=== PATIENT | female | born 1970 | race Caucasian/White ===

== ENCOUNTER 2016-08-17 15:46 | Emergency (ER) | payer MEDICAID ==
[~2016-08-17] VITALS: Wt 72.7 kg
[2016-08-17] MEDS ORDERED: ONDANSETRON 4 MG INJ IV STA (16:19)
[2016-08-17] MEDS ORDERED: SOD CHLORIDE 0.9% 1,000 ML IV STA (16:19)
[2016-08-17] MEDS ORDERED: morphine 4 MG/ML VIAL IV STA (16:19)
[2016-08-17 16:51] LABS: ADD SCAN DIFF NO
[2016-08-17 16:53] LABS: BASOPHIL # 0.1 10^3/ul (0.0-0.1); BASOPHILS % 0.8 % (0.0-2.0); EOSINOPHILS # 0.1 10^3/ul (0.0-0.5); EOSINOPHILS % 1.1 % (0.0-7.0); HEMATOCRIT 43.1 % (37.0-47.0); HEMOGLOBIN 14.5 g/dl (12.0-16.0); LYMPHOCYTES # 1.8 10^3/ul (0.8-2.9); MEAN CORPUSCULAR HEMOGLOBIN 31.8 pg (29.0-33.0); MEAN CORPUSCULAR HGB CONC 33.6 g/dl (32.0-37.0); MEAN CORPUSCULAR VOLUME 94.5 fl (82.0-101.0); MEAN PLATELET VOLUME 9.7 fl (7.4-10.4); MONOCYTE # 0.3 10^3/ul (0.3-0.9); MONOCYTES % 5.2 % (0.0-11.0); NEUTROPHIL # 4.1 10^3/ul (1.6-7.5); NEUTROPHILS % 64.7 % (39.0-77.0); PLATELET COUNT 278 10^3/UL (140-415); RED BLOOD COUNT 4.56 10^6/ul (4.20-5.40); WHITE BLOOD COUNT 6.4 10^3/ul (4.8-10.8)
[2016-08-17 16:54] LABS: ADD UMIC YES; URINE BILIRUBIN (Dip) NEGATIVE (NEGATIVE); URINE BLOOD (Dip) NEGATIVE (NEGATIVE); URINE COLOR LT. YELLOW (YELLOW); URINE GLUCOSE (Dip) NEGATIVE (NEGATIVE); URINE KETONES (Dip) NEGATIVE (NEGATIVE); URINE LEUKOCYTE ESTERASE (Dip) TRACE (NEGATIVE); URINE NITRITE (Dip) NEGATIVE (NEGATIVE); URINE TOTAL PROTEIN (Dip) NEGATIVE (NEGATIVE); URINE UROBILINOGEN (Dip) 0.2 E.U./dL (0.1-1.0)
[2016-08-17 17:01] LABS: SQUAMOUS EPITHELIAL CELL,UR FEW; URINE RBCS NONE SEEN /HPF (0)
--- NOTE | 2016-08-17 17:07 | RADRPT ---
PROCEDURE: US Abdomen (right upper quadrant). CLINICAL INDICATION: Right upper quadrant abdomen pain. TECHNIQUE: Multiple real-time longitudinal and transverse images of the right upper quadrant of th e abdomen were acquired utilizing a curved array transducer. Images were reviewed on a high-resoluti on PACS workstation. COMPARISON: CT scan of the abdomen and pelvis dated 11/25/2013. FINDINGS: The liver is normal in size and echogenicity. There is no focal hepatic lesion. The gallbladder is not visualized but was present on the prior CT scan from 11/25/2013. The bile ducts are normal with the common bile duct measuring 5.0 mm in diameter. The visualized portions of the pancreas are unremarkable with obscuration of the tail of the pancrea s. No free fluid is present. The right kidney measures 10.1 cm. There is normal echogenicity of the right kidney. There is no perinephric fluid collection. No hydronephrosis, mass, or calculus is seen. IMPRESSION: 1. Gallbladder not visualized. Clinical correlation advised. Correlation with CT scan should be c onsidered if the gallbladder is still present. The gallbladder was present on the CT scan dated 11/06. 2. Otherwise unremarkable right upper quadrant abdomen ultrasound. RPTAT: QQ .Sabino Fontaine MD, Date Time Electronically viewed and signed by .Sabino Fontaine MD, MD on 08/17/2016 17:07 .R/
[2016-08-17 17:11] LABS: ALBUMIN 4.7 g/dl (3.3-4.9); POTASSIUM 3.7 mmol/L (3.5-5.1)
[2016-08-17 17:14] LABS: ALBUMIN/GLOBULIN RATIO 1.17; BILIRUBIN,INDIRECT 0.3 mg/dl (0-1.1); BILIRUBIN,TOTAL 0.3 mg/dl (0.2-1.3); CALCIUM 9.5 mg/dl (8.4-10.2); CREATININE 0.66 mg/dl (0.44-1.00); TOTAL PROTEIN 8.7 g/dl (6.1-8.1)
[2016-08-17] MEDS ORDERED: SOD CHLORIDE 0.9% 100 ML ONE (17:42)
[2016-08-17] MEDS ORDERED: IOHEXOL 300MG/ML 150 ML BTL ONE (17:42)
--- NOTE | 2016-08-17 18:02 | RADRPT ---
PROCEDURE: CT of the abdomen and pelvis CLINICAL INDICATION: Abdominal pain TECHNIQUE: The study was performed utilizing a GE XAPPmediapeed 64-slice multidetector CT scanner. Dir ect spiral axial sections were obtained through the abdomen and pelvis with intravenous contrast. Af ter administration of 90 cc of Omnipaque-300, postcontrast images were obtained. Coronal and sagitt al reformatted images were performed. The CTDI vol is 9.01 mGy and the DLP is 507.25 mGy-cm. The im ages were reviewed on a PACS workstation. COMPARISON: 11/25/2013 FINDINGS: CT abdomen: The lung bases are clear. The heart is not enlarged. No pericardial effusion is seen. The liver is normal in size and contour. No focal liver lesions or intrahepatic biliary dilatation is seen. The gallbladder is not identified. No common bile duct dilatation is seen. The spleen, pa ncreas, and adrenal glands are unremarkable in appearance. The kidneys are normal in size and contou r enhance normally. No evidence of hydronephrosis or nephrolithiasis is seen. The stomach is unremarkable. The large bowel is stool-filled. The small and large bowel are otherwi se unremarkable in course and caliber. A normal appendix is identified. No enlarged lymph nodes or fluid collections are seen. The aorta is normal in caliber. CT pelvis: No pelvic mass, adenopathy, or focal fluid collection is seen. There is no free fluid. The urinary bladder is normal. The uterus is enlarged and heterogeneous in attenuation with multipl e heterogeneous masses. No osseous lesions are seen. IMPRESSION: 1. No acute pathology in the abdomen and pelvis. 2. Gallbladder not identified consistent with a prior cholecystectomy. 2. Enlarged and heterogeneous uterus with multiple masses which is likely leiomyomatous nature. Co nfirmation with a pelvic ultrasound is suggested. 3. Stool filled large bowel. RPTAT: HPNM Physician Eduardo Date Time Electronically viewed and signed by Physician Eduardo on 08/17/2016 18:02 /
[2016-08-17] MEDS ORDERED: IBUP-1542 PO (18:33)
[2016-08-17] MEDS ORDERED: ONDA4TAB14 PO (18:33)
[2016-08-17] MEDS ORDERED: DICY10CA60 PO (18:33)
--- NOTE | 2016-08-17 18:38 | ERD ---
ER Documentation Chief Complaint Date/Time DATE: 08/17/16 TIME: 18:34 Chief Complaint ruq pain, mckenna, nausea HPI Patient is a 45-year-old female with past medical history of cholecystectomy in 04/2016 who presents to the emergency department with right upper quadrant pain , nausea, vomiting and headaches. Patient states that her symptoms started 4 days ago. Patient states the pain is primarily in the right upper quadrant however she denies any radiation of the pain. Patient denies any epigastric pain. Patient states she has had 2 episodes of nonbloody nonbilious vomiting. She reports normal daily bowel movements. Patient denies any fevers, chills, chest pain, shortness of breath, left upper extremity pain, diaphoresis. Patient also states that she has a mild headache in the frontal region. Patient denies sudden onset of the pain. Patient denies taking any medication. Patient denies any blurry vision, loss of consciousness. ROS All systems reviewed and are negative except as per history of present illness. Medications Home Meds Active Scripts Ondansetron (Ondansetron Odt) 4 Mg Tab.rapdis, 4 MG PO Q6H Y for NAUSEA AND/OR VOMITING, #10 TAB Prov:GUERA AGARWAL PA-C 08/17/16 Ibuprofen* (Ibuprofen*) 600 Mg Tablet, 600 MG PO Q6, #20 TAB Prov:GUERA AGARWAL PA-C 08/17/16 Dicyclomine Hcl* (Bentyl*) 10 Mg Capsule, 10 MG PO QID, #30 CAP Prov:GUERA AGARWAL PA-C 08/17/16 Allergies Allergies: Coded Allergies: No Known Allergy (Unverified , 01/03/13) PMhx/Soc History of Surgery: No Anesthesia Reaction: Yes (cholecystectomy) Hx Neurological Disorder: No Hx Respiratory Disorders: No Hx Cardiac Disorders: No Hx Psychiatric Problems: No Hx Miscellaneous Medical Probl: No Hx Alcohol Use: No Hx Substance Use: No Hx Tobacco Use: No FmHx Family History: diabetes Physical Exam Vitals Vital Signs Date Time Temp Pulse Resp B/P Pulse Ox O2 Delivery O2 Flow Rate FiO2 08/17/16 15:51 97.7 68 20 127/77 98 Physical Exam GENERAL: Well-developed, well-nourished female. Appears in no acute distress. Speaking in full sentences. HEAD: Normocephalic, atraumatic. No deformities or ecchymosis. EYE: Pupils equal, round, and reactive to light. EOMs intact. No conjunctival erythema. No eye discharge. ENT: External ear without any masses or tenderness. Auditory canals clear bilaterally. TM visualized bilaterally, non-erythematous, non-bulging. Nasal mucosa pink with no discharge. Oropharynx is pink without any tonsillar erythema or exudates. No uvula deviation. No kissing tonsils. NECK: Supple. No meningismus. Normal ROM of the neck. LUNG: Clear to auscultation bilaterally. No rhonchi, wheezing, rales or coarse breath sounds. HEART: Regular rate and rhythm. No murmurs, rubs or gallops. ABDOMEN: Soft, and nondistended. Tenderness to palpation in the right upper quadrant. Positive bowel sounds in all four quadrants. No rebound tenderness, no guarding. (-) McBurney's point tenderness. No CVA tenderness. BACK: No midline tenderness. EXTREMITES: Equal pulses bilaterally. No peripheral clubbing, cyanosis or edema. No unilateral leg swelling. NEUROLOGIC: Alert and oriented to person, place and time. Moving all four extremities. 5/5 strength in all extremities. Normal speech. Steady gait. SKIN: Normal color. Warm and dry. No rashes or lesions. Result Diagram: 08/17/16 1612 08/17/16 1612 Results 24 hrs Laboratory Tests Test 08/17/16 16:12 White Blood Count 6.410^3/ul Red Blood Count 4.5610^6/ul Hemoglobin 14.5g/dl Hematocrit 43.1% Mean Corpuscular Volume 94.5fl Mean Corpuscular Hemoglobin 31.8pg Mean Corpuscular Hemoglobin Concent 33.6g/dl Red Cell Distribution Width 13.0% Platelet Count 49172^3/UL Mean Platelet Volume 9.7fl Neutrophils % 64.7% Lymphocytes % 28.0% Monocytes % 5.2% Eosinophils % 1.1% Basophils % 0.8% Nucleated Red Blood Cells % 0.0/100WBC Neutrophils # 4.110^3/ul Lymphocytes # 1.810^3/ul Monocytes # 0.310^3/ul Eosinophils # 0.110^3/ul Basophils # 0.110^3/ul Nucleated Red Blood Cells # 0.010^3/ul Urine Color LT. YELLOW Urine Clarity CLEAR Urine pH 6.0 Urine Specific [place] <=1.005 Urine Ketones NEGATIVE Urine Nitrite NEGATIVE Urine Bilirubin NEGATIVE Urine Urobilinogen 0.2 E.U./dL Urine Leukocyte Esterase TRACE Urine Microscopic RBC NONE SEEN/HPF Urine Microscopic WBC 0-2/HPF Urine Squamous Epithelial Cells FEW Urine Hemoglobin NEGATIVE Urine Glucose NEGATIVE% Urine Total Protein NEGATIVE Sodium Level 143mmol/L Potassium Level 3.7mmol/L Chloride Level 102mmol/L Carbon Dioxide Level 27mmol/L Anion Gap 18 Blood Urea Nitrogen 11mg/dl Creatinine 0.66mg/dl Glucose Level 102mg/dl Calcium Level 9.5mg/dl Total Bilirubin 0.3mg/dl Direct Bilirubin 0.00mg/dl Indirect Bilirubin 0.3mg/dl Aspartate Amino Transf (AST/SGOT) 21IU/L Alanine Aminotransferase (ALT/SGPT) 34IU/L Alkaline Phosphatase 95IU/L Troponin I < 0.012ng/ml Total Protein 8.7g/dl Albumin 4.7g/dl Globulin 4.00g/dl Albumin/Globulin Ratio 1.17 Lipase 75U/L Current Medications Medications (Trade) Dose Ordered Sig/Saad Route PRN Reason Start Time Stop Time Status Last Admin Dose Admin Sodium Chloride (NS) 1,000 ml @ 1,000 mls/hr Q1H STAT IV 08/17/16 16:19 08/17/16 17:18 DC 08/17/16 16:19 Morphine Sulfate (morphine) 4 mg ONCE STAT IV 08/17/16 16:19 08/17/16 16:22 DC 08/17/16 17:58 Ondansetron HCl (Zofran Inj) 4 mg ONCE STAT IV 08/17/16 16:19 08/17/16 16:22 DC 08/17/16 17:58 IV Flush 10 ml 10 ml STK-MED ONCE .ROUTE 08/17/16 17:42 08/17/16 17:43 DC 08/17/16 17:50 Sodium Chloride (NS) 100 ml @ ud STK-MED ONCE .ROUTE 08/17/16 17:42 08/17/16 17:43 DC 08/17/16 17:50 Iohexol (Omnipaque 300mg/ ml) 150 ml STK-MED ONCE .ROUTE 08/17/16 17:42 08/17/16 17:43 DC 08/17/16 17:50 Meclizine HCl (Antivert) 12.5 mg ONCE ONCE PO 08/17/16 19:00 08/17/16 19:01 DC 08/17/16 18:44 Procedures/MDM ED COURSE: The patient was stable throughout ED course. I kept the patient and/or family informed of laboratory and diagnostic imaging results throughout the ED course. EKG: Read by Dr. Mireles, attending physician. EKG shows sinus bradycardia at a rate of 54 bpm. No arrhythmias, acute ST elevations or T wave changes were noted. DIAGNOSTIC IMAGING: Read by radiologist. DIAGNOSTIC IMAGING REPORT Patient: DAVID HESS : 1970 Age: 45 Sex: F MR #: [id number] DOS: 08/17/16 1720 Ordering MD: GUERA AGARWAL PA-C Location: [facility] Room/Bed: PROCEDURE: CT of the abdomen and pelvis CLINICAL INDICATION: Abdominal pain TECHNIQUE: The study was performed utilizing a GE Betify[employer]Historic Futures 64-slice multidetector CT scanner. Direct spiral axial sections were obtained through the abdomen and pelvis with intravenous contrast. After administration of 90 cc of Omnipaque-300, postcontrast images were obtained. Coronal and sagittal reformatted images were performed. The CTDI vol is 9.01 mGy and the DLP is 507.25 mGy-cm. The images were reviewed on a PACS workstation. COMPARISON: 11/25/2013 FINDINGS: CT abdomen: The lung bases are clear. The heart is not enlarged. No pericardial effusion is seen. The liver is normal in size and contour. No focal liver lesions or intrahepatic biliary dilatation is seen. The gallbladder is not identified. No common bile duct dilatation is seen. The spleen, pancreas, and adrenal glands are unremarkable in appearance. The kidneys are normal in size and contour enhance normally. No evidence of hydronephrosis or nephrolithiasis is seen. The stomach is unremarkable. The large bowel is stool-filled. The small and large bowel are otherwise unremarkable in course and caliber. A normal appendix is identified. No enlarged lymph nodes or fluid collections are seen. The aorta is normal in caliber. CT pelvis: No pelvic mass, adenopathy, or focal fluid collection is seen. There is no free fluid. The urinary bladder is normal. The uterus is enlarged and heterogeneous in attenuation with multiple heterogeneous masses. No osseous lesions are seen. IMPRESSION: 1. No acute pathology in the abdomen and pelvis. 2. Gallbladder not identified consistent with a prior cholecystectomy. 2. Enlarged and heterogeneous uterus with multiple masses which is likely leiomyomatous nature. Confirmation with a pelvic ultrasound is suggested. 3. Stool filled large bowel. RPTAT: HPNM Physician Eduardo Date Time Electronically viewed and signed by Ernst Granda Physician on 08/17/2016 18 :02 / CC: GUERA AGARWAL PA-C DIAGNOSTIC IMAGING REPORT Patient: DAVID HESS : 1970 Age: 45 Sex: F MR #: [id number] DOS: 08/17/16 1629 Ordering MD: GUERA AGARWAL PA-C Location: [facility] Room/Bed: PROCEDURE: US Abdomen (right upper quadrant). CLINICAL INDICATION: Right upper quadrant abdomen pain. TECHNIQUE: Multiple real-time longitudinal and transverse images of the right upper quadrant of the abdomen were acquired utilizing a curved array transducer. Images were reviewed on a high-resolution PACS workstation. COMPARISON: CT scan of the abdomen and pelvis dated 11/25/2013. FINDINGS: The liver is normal in size and echogenicity. There is no focal hepatic lesion. The gallbladder is not visualized but was present on the prior CT scan from . The bile ducts are normal with the common bile duct measuring 5.0 mm in diameter. The visualized portions of the pancreas are unremarkable with obscuration of the tail of the pancreas. No free fluid is present. The right kidney measures 10.1 cm. There is normal echogenicity of the right kidney. There is no perinephric fluid collection. No hydronephrosis, mass, or calculus is seen. IMPRESSION: 1. Gallbladder not visualized. Clinical correlation advised. Correlation with CT scan should be considered if the gallbladder is still present. The gallbladder was present on the CT scan dated 11/25/2013. 2. Otherwise unremarkable right upper quadrant abdomen ultrasound. RPTAT: QQ .Sabino Fontaine MD, Date Time Electronically viewed and signed by .Sabino Fontaine MD, MD on 08/17/2016 17:07 .R/ CC: GUERA AGARWAL PA-C MEDICATIONS GIVEN: IV fluids, Zofran, morphine. Patient tolerated medication well with no adverse reactions. On reexamination, patient reported improvement in pain however she reported dizziness and some mild chest discomfort. EKG was obtained. Troponin was added. She was also given meclizine. MEDICAL DECISION MAKING: This is a 45-year-old female presents with right upper quadrant pain 3 days.. Vital signs were reviewed. Patient is afebrile. Abdominal exam revealed tenderness to palpation in the right upper quadrant. CBC showed no evidence of systemic infection or severe anemia. CMP showed no evidence of electrolyte abnormalities, severe acidosis, alkalosis, renal failure, or liver disease. Lipase showed no evidence of acute pancreatitis. Troponin was negative. EKGs showed sinus bradycardia. Low suspicion for ACS, pericarditis, arrhythmia, UA showed no evidence of acute infection or hematuria. Low suspicion for UTI, pyelonephritis or nephrolithiasis. Urine test was negative. CT abdomen and pelvis showed No acute pathology in the abdomen and pelvis. Gallbladder not identified consistent with a prior cholecystectomy. Enlarged and heterogeneous uterus with multiple masses which is likely leiomyomatous nature. Confirmation with a pelvic ultrasound is suggested. Stool filled large bowel. At this time, patient's presentation is most consistent with fibroids and right upper quadrant pain. I have a much lower clinical concern for acute coronary syndrome, AAA, arrhythmia, mesenteric ischemia, lower lobe pneumonia, DKA, bowel perforation, ascending cholangitis, bile leak, hepatic abscess, pancreatitis, GERD, splenic rupture, diverticulitis, UTI, pyelonephritis, nephrolithiasis, appendicitis. PRESCRIPTIONS: Bentyl, ibuprofen, Zofran DISCHARGE: At this time, patient is stable for discharge and outpatient management. Patient was given copy of all imaging and blood work obtained today. Patient was advised that she will need to follow-up with an COMPUTER ENGINEERING PROFESSOR for further monitoring of her fibroids. I have instructed the patient to follow-up with his /her primary care physician in 1-2 days. I have instructed the patient to promptly return to the ER at any time for any new or worsening symptoms including increased pain, nausea, vomiting, diarrhea, fever, weakness or LOC. The patient and/or family expressed understanding of and agreement with this plan. All questions were answered. Home care instructions were provided. Departure Diagnosis: Primary Impression: Abdominal cramping Additional Impression: Fibroids Uterine leiomyoma location: unspecified location Qualified Code: D25.9 - Uterine leiomyoma, unspecified location Condition: Stable Patient Instructions: Abdominal Pain, Uterine Fibroids Referrals: [facility] YOU HAVE RECEIVED A MEDICAL SCREENING EXAM AND THE RESULTS INDICATE THAT YOU DO NOT HAVE A CONDITION THAT REQUIRES URGENT TREATMENT IN THE EMERGENCY DEPARTMENT. FURTHER EVALUATION AND TREATMENT OF YOUR CONDITION CAN WAIT UNTIL YOU ARE SEEN IN YOUR DOCTORS OFFICE WITHIN THE NEXT 1-2 DAYS. IT IS YOUR RESPONSIBILITY TO MAKE AN APPOINTMENT FOR FOLOW-UP CARE. IF YOU HAVE A PRIMARY DOCTOR --you should call your primary doctor and schedule an appointment IF YOU DO NOT HAVE A PRIMARY DOCTOR YOU CAN CALL OUR PHYSICIAN REFERRAL HOTLINE AT IF YOU CAN NOT AFFORD TO SEE A PHYSICIAN YOU CAN CHOSE FROM THE FOLLOWING [facility] [address] [facility]. [facility] [address] [facility]. [facility] [address] [facility] [address] [facility]. [facility] [address] [facility]. [facility]. [address] [facility]. [facility] YOU HAVE RECEIVED A MEDICAL SCREENING EXAM AND THE RESULTS INDICATE THAT YOU DO NOT HAVE A CONDITION THAT REQUIRES URGENT TREATMENT IN THE EMERGENCY DEPARTMENT. FURTHER EVALUATION AND TREATMENT OF YOUR CONDITION CAN WAIT UNTIL YOU ARE SEEN IN YOUR DOCTORS OFFICE WITHIN THE NEXT 1-2 DAYS. IT IS YOUR RESPONSIBILITY TO MAKE AN APPOINTMENT FOR FOLOW-UP CARE. IF YOU HAVE A PRIMARY DOCTOR --you should call your primary doctor and schedule and appointment IF YOU DO NOT HAVE A PRIMARY DOCTOR YOU CAN CALL OUR PHYSICIAN REFERRAL HOTLINE AT . IF YOU CAN NOT AFFORD TO SEE A PHYSICIAN YOU CAN CHOSE FROM THE FOLLOWING [facility] INSTITUTIONS: [facility] [address] [place] [address] [facility] [address] [place] [address] [facility] + [facility] [address] [place] [address] COMPUTER ENGINEERING PROFESS[place] [address] [facility] [address] [place] [address] OFFICE FAX , [facility] [address] [place] [place] [id number] [facility] [facility] [address] [place] [address] [address] [facility] [address] [facility] [address] [facility] [address] [place] [address] [facility] [address] [place] [address] [address] [facility] [address] - JERALD JIMENEZ [address], [facility] [address] [address] [address] [facility]. [address], [facility] [address] [address] [address] [place], [place] [phone] Additional Instructions: Call your primary care doctor TOMORROW for an appointment during the next 1-2 days.See the doctor sooner or return here if your condition worsens before your appointment time. Eat lots of foods with fiber. Drink plenty of water. Follow-up with her COMPUTER ENGINEERING PROFESSOR for your fibroids. GUERA AGARWAL PA-C Aug 17, 2016 18:38
[2016-08-17] MEDS ORDERED: MECLIZINE 12.5 MG TAB PO ONE (19:00)
[2016-08-17 19:58] VITALS: BP 120/77; PULSE 65; RESP 18; TEMP 97.9
== END 2016-08-17 19:59 | disposition home or self-care (01) ==
LOC: FTE 15:46
DX: R10.11 Right upper quadrant pain (principal); D25.9 Leiomyoma of uterus, unspecified; R11.2 Nausea with vomiting, unspecified
CPT/HCPCS: 74177; 76705; 80053; 81001; 83690; 84484; 85025; 93005; J2270; J2405; J7030; Q9967; Z7610; 36415; 81003; 96374; 96375